=== PATIENT | female | born 1970 | race Caucasian/White ===

== ENCOUNTER → 2019-12-12 09:30 | Outpatient (CLI) | payer MEDICAID, SELFPAY ==
[2019-12-15 17:43] LABS: 25-OH Vitamin D, Total 36.7 ng/mL (30-100)
[2019-12-15 18:37] LABS: Iron 43 ug/dL (37-170)
[2019-12-15 18:46] LABS: Total Iron Binding Capacity 398 ug/dL (265-497)
[2019-12-15 19:14] LABS: Ferritin 8.25 ng/ml (6.24-137)
== END ==
PROVIDERS: Visit Provider Nurse Practitioner Family
DX: D50.9 Iron deficiency anemia, unspecified (principal); I10 Essential (primary) hypertension; E78.2 Mixed hyperlipidemia; E03.9 Hypothyroidism, unspecified; E55.9 Vitamin D deficiency, unspecified
CPT/HCPCS: 82306; 82728; 83540; 83550

== ENCOUNTER → 2020-06-26 07:06 | Outpatient (CLI) | payer OTHER, MEDICAID, SELFPAY ==
[2020-06-26 07:39] LABS: Basophils % 0.6 % (0.1-2.0); Eosinophils # 0.2 K/mm3 (0.0-0.4); Eosinophils % 3.4 % (0.1-12.0); Hematocrit 35.7 % (37.0-47.0); Hemoglobin 11.1 g/dL (12.2-16.2); Lymphocytes # 1.7 K/mm3 (0.7-4.5); Lymphocytes % 38.9 % (10-50); Mean Corpuscular HGB Conc 31.2 g/dL (31.8-35.4); Mean Corpuscular Hemoglobin 23.6 pg (27.0-31.2); Mean Corpuscular Volume 75.6 fl (81-99); Mean Platelet Volume 7.7 fl (7.4-10.4); Monocytes # 0.2 K/mm3 (0.1-1.0); Monocytes % 5.2 % (1.7-9.3); Neutrophils # 2.3 K/mm3 (1.8-7.8); Neutrophils % 51.9 % (37.0-80.0); Platelet Count 264 K/mm3 (142-424); Red Blood Count 4.72 M/mm3 (4.20-5.40); Red Cell Distribution Width 14.4 % (11.5-17.5); White Blood Count 4.4 K/mm3 (4.8-10.8)
[2020-06-26 07:55] LABS: Activated Partial Thrombo Time 24.6 seconds (22.8-30.6); INR 0.91 (0.9-1.1); Prothrombin Time 10.8 seconds (10.1-12.5)
[2020-06-26 08:39] LABS: Alanine Aminotransferase 13 U/L (12-78); Albumin Level 4.3 g/dl (3.5-5.0); Albumin/Globulin Ratio 1.6 (1.1-1.8); Alkaline Phosphatase 67 U/L (38-126); Anion Gap 13.3 mEq/L (5-15); Aspartate Amino Transferase 20 U/L (14-36); Bilirubin,Total 0.4 mg/dl (0.2-1.3); Blood Urea Nitrogen 18 mg/dl (7-17); Calcium 9.7 mg/dl (8.4-10.2); Carbon Dioxide 27 mmol/L (22.0-30.0); Chloride 104 mmol/L (98-107); Chol/HDL Ratio 6.4 (1-3.5); Cholesterol 231 mg/dl (140-200); Estimated Glomerular Filt Rate 89 ml/min (>60); GFR (African American) 108 ML/MIN (>60); Globulin 2.7 g/dL (1.3-3.2); Glucose 95 mg/dl (74-100); HDL Cholesterol 36 mg/dl (40-60); Potassium 4.3 mmoL/L (3.5-5.1); Sodium 140 mmol/L (136-145); Triglycerides 169 mg/dl (30-150); VLDL Cholesterol 34 mg/dL (0-40)
[2020-06-26 08:49] LABS: Direct LDL Cholesterol 141.99 mg/dL (100-129)
[2020-06-26 08:56] LABS: 25-OH Vitamin D, Total 28.2 ng/mL (30-100)
[2020-06-26 09:10] LABS: Thyroid Stimulating Hormone 2.09 uIU/mL (0.465-4.68)
== END ==
PROVIDERS: Visit Provider Nurse Practitioner Family
DX: E03.9 Hypothyroidism, unspecified (principal); E55.9 Vitamin D deficiency, unspecified; R23.3 Spontaneous ecchymoses; I10 Essential (primary) hypertension; E78.2 Mixed hyperlipidemia
CPT/HCPCS: 36415; 80053; 80061; 82306; 84443; 85025; 85610; 85730

== ENCOUNTER → 2021-02-10 07:31 | Outpatient (CLI) | payer OTHER, MEDICAID, SELFPAY ==
[2021-02-10 07:55] LABS: Basophils % 0.7 % (0.1-2.0); Eosinophils # 0.2 K/mm3 (0.0-0.4); Eosinophils % 2.7 % (0.1-12.0); Hemoglobin 10.9 g/dL (12.2-16.2); Lymphocytes # 1.9 K/mm3 (0.7-4.5); Lymphocytes % 31.2 % (10-50); Mean Corpuscular HGB Conc 29.4 g/dL (31.8-35.4); Mean Corpuscular Hemoglobin 21.5 pg (27.0-31.2); Mean Corpuscular Volume 73.1 fl (81-99); Mean Platelet Volume 7.2 fl (7.4-10.4); Monocytes # 0.3 K/mm3 (0.1-1.0); Monocytes % 5.7 % (1.7-9.3); Neutrophils # 3.6 K/mm3 (1.8-7.8); Neutrophils % 59.7 % (37.0-80.0); Platelet Count 366 K/mm3 (142-424); Red Blood Count 5.06 M/mm3 (4.20-5.40); Red Cell Distribution Width 16.6 % (11.5-17.5)
[2021-02-10 10:11] LABS: Chol/HDL Ratio 4.5 (1-3.5); Cholesterol 174 mg/dl (140-200); HDL Cholesterol 39 mg/dl (40-60); Triglycerides 102 mg/dl (30-150); VLDL Cholesterol 20 mg/dL (0-40)
[2021-02-10 10:21] LABS: Direct LDL Cholesterol 113.27 mg/dL (100-129)
[2021-02-10 10:29] LABS: 25-OH Vitamin D, Total 32.3 ng/mL (30-100)
[2021-02-10 10:43] LABS: Thyroid Stimulating Hormone 1.64 uIU/mL (0.465-4.68)
== END ==
PROVIDERS: Visit Provider Nurse Practitioner Family
DX: E03.9 Hypothyroidism, unspecified (principal); E55.9 Vitamin D deficiency, unspecified; E78.2 Mixed hyperlipidemia; D50.9 Iron deficiency anemia, unspecified
CPT/HCPCS: 36415; 80061; 82306; 84443; 85025

== ENCOUNTER → 2021-03-19 14:40 | Outpatient (CLI) | payer OTHER, SELFPAY ==
[2021-03-19 19:45] VITALS: BMI 29.2
== END ==
PROVIDERS: PCP Nurse Practitioner Family; Visit Provider Nurse Practitioner Family
DX: J02.0 Streptococcal pharyngitis (principal)
CPT/HCPCS: J0561